=== PATIENT | female | born 1950 | race African-American/Black ===

== ENCOUNTER 2023-10-02 17:38 | Emergency (ER) | payer OTHER, MEDICAID ==
[~2023-10-02] VITALS: Ht 157.5 cm; Wt 64.0 kg
[~2023-10-02 17:38] MED LIST: HYDR-4094 PO; LEVO75TA PO; LISI10TA26 PO
[2023-10-02 17:49] VITALS: O2SAT 98
[2023-10-02 18:15] VITALS: TEMP 98
[2023-10-02] MEDS: HYDROCODONE/ACETAMINOPHEN 10/325MG TABLET PO ONE (21:09)
[2023-10-02 22:06] VITALS: BP 166/109; PULSE 75; RESP 18
[2023-10-02] MEDS: TETANUS, DIPHTHERIA, PERTUSSIS VAC/PF 0.5ML (>10YR OLD) IM ONE (22:20)
== END 2023-10-02 22:22 | disposition home or self-care (01) ==
LOC: ER 17:45
DX: S01.81XA Laceration without foreign body of other part of head, initial encounter (principal); M25.562 Pain in left knee; I10 Essential (primary) hypertension; E03.9 Hypothyroidism, unspecified; W18.39XA Other fall on same level, initial encounter; Y93.89 Activity, other specified; Y92.89 Other specified places as the place of occurrence of the external cause; Y99.8 Other external cause status
CPT/HCPCS: 73560; 99284